=== PATIENT | female | born 1950 | race Caucasian/White ===

== ENCOUNTER → 2018-02-24 07:24 | Outpatient (CLI) | payer MEDICARE, BC, SELFPAY ==
--- NOTE | 2018-02-24 07:28 | BI_ITS ---
MAMMOGRAPHY - BILATERAL SCREENING REASON FOR EXAM: Female, 67 years old. Routine annual screening examination. PERTINENT HISTORY: Mother with breast cancer. TECHNIQUE: Digital bilateral breast jorge (3D mammographic acquisition) in the CC and MLO projections. 2-D mediolateral oblique (MLO) and craniocaudad (CC) views of both breasts were obtained. CAD: Full Field Digital Mammography with Computer Added Detection was performed. COMPARISON: Comparison is made with prior study dated February 13, 2017 and November 29, 2015. FINDINGS: Breast Composition: There are scattered areas of fibroglandular density. There is a 6.7 mm x 5 mm well-defined nodule in the inferior slightly medial aspect of the left breast. Correlation with ultrasound is recommended. A tissue clip marker is once again seen in the superior medial aspect of the right breast. This is unchanged. Stable benign-appearing bilateral axillary lymph nodes. No other significant abnormalities are identified. BI/SCREENING MAMM (CAD), BILAT IMPRESSION: 6.7 mm x 5 mm well-defined nodule in the inferior slightly medial aspect of the left breast as described. Correlation with ultrasound is recommended. ASSESSMENT CATEGORY: BIRADS Category 0: Incomplete. Need additional imaging evaluation. A letter regarding these results will be sent to the patient by the facility within 30 days. Approximately 10% of breast cancers are not detected by mammography. A normal mammogram should not delay biopsy of a clinically suspicious abnormality. [id number] Electronically Signed: Woo Rodriguez MD at 9:02 EDT Tel [phone], Service support ,
== END ==
PROVIDERS: Family Provider Internal Medicine; PCP Internal Medicine; Visit Provider Internal Medicine
DX: Z12.31 Encounter for screening mammogram for malignant neoplasm of breast (principal)
CPT/HCPCS: 77063; 77067

== ENCOUNTER → 2018-02-25 09:49 | Outpatient (CLI) | payer MEDICARE, BC, SELFPAY ==
--- NOTE | 2018-02-25 09:51 | US_ITS ---
STUDY: ULTRASOUND BREAST - LEFT REASON FOR EXAM: Female, 67 years old. Abnormal screening mammogram. TECHNIQUE: Axial and longitudinal images of the LEFT breast were performed with a high resolution ultrasound transducer. COMPARISON: Comparison is made with prior mammogram dated February 24, 2018. FINDINGS: LEFT Breast: The mammographic abnormality corresponds to a 5 mm x 5 mm x 4 mm cyst at the 7:00 position in the breast at 4 cm from the nipple. US/Breast Limited Unilateral IMPRESSION: The mammographic abnormality corresponds to a 5 mm x 5 mm x 4 mm cyst at the 7:00 position breast at 4 cm from nipple. ASSESSMENT CATEGORY: BIRADS Category 2: Benign. A letter regarding these results will be sent to the patient by the facility within 30 days. Electronically Signed: Woo Rodriguez MD at 12:42 EDT Tel [phone], Service support ,
== END ==
PROVIDERS: Family Provider Internal Medicine; PCP Internal Medicine; Visit Provider Internal Medicine
DX: R92.8 Other abnormal and inconclusive findings on diagnostic imaging of breast (principal)
CPT/HCPCS: 76642

== ENCOUNTER → 2019-01-20 | Outpatient (CLI) | payer SELFPAY ==
--- NOTE | 2019-01-20 12:57 | CT_ITS ---
STUDY: CARDIAC CALCIUM SCORING - CT CHEST REASON FOR EXAM: Female, 68 years old. Coronary calcium screening, over read. RADIATION DOSAGE (If Supplied By Facility): DLP = ( 170.6 ) mGycm TECHNIQUE: Axial non-enhanced images were acquired through the heart for the sole purpose of measuring coronary artery calcium. Individualized dose optimization techniques were used for this CT. COMPARISON: None. FINDINGS: Body wall soft tissues: No acute process. Upper abdomen: No acute process. Osseous structures: Mild spondylosis, osteopenia. Mediastinum: No acute process. Lungs: There is mild generalized pulmonary hyperlucency which may reflect the presence of COPD. Follow-up are otherwise clear. Evaluated airways are normal. Aorta: Nondilated. Mild calcification of the aortic valve annulus. Pulmonary arteries: Nondilated. IVC and SVC: Normal. Pulmonary veins: Normal. Heart: No cardiomegaly or pericardial effusion. Coronary arteries: The right and left coronary arteries each emerge from the appropriate coronary sinus, right coronary dominance to the PDA, ramus intermedius trifurcation of the left main, normal variant. Coronary calcifications are notable at the origin of the LAD and ramus intravenous branch, minimal thereafter in the proximal to mid LAD, 3 foci of coronary calcium in the proximal RCA. CT/CCTA Calcium Scoring IMPRESSION: The coronary calcium score is reported under separate cover with cardiology. Please see that report. No other significant thoracic process is evident. Electronically Signed: Theodore Armenta MD at 14:47 EDT Tel , Service support ,
--- NOTE | 2019-01-20 12:57 | CT_ITS ---
STUDY: CARDIAC CALCIUM SCORING - CT CHEST REASON FOR EXAM: Female, 68 years old. Coronary calcium screening, over read. RADIATION DOSAGE (If Supplied By Facility): DLP = ( 170.6 ) mGycm TECHNIQUE: Axial non-enhanced images were acquired through the heart for the sole purpose of measuring coronary artery calcium. Individualized dose optimization techniques were used for this CT. COMPARISON: None. FINDINGS: Body wall soft tissues: No acute process. Upper abdomen: No acute process. Osseous structures: Mild spondylosis, osteopenia. Mediastinum: No acute process. Lungs: There is mild generalized pulmonary hyperlucency which may reflect the presence of COPD. Follow-up are otherwise clear. Evaluated airways are normal. Aorta: Nondilated. Mild calcification of the aortic valve annulus. Pulmonary arteries: Nondilated. IVC and SVC: Normal. Pulmonary veins: Normal. Heart: No cardiomegaly or pericardial effusion. Coronary arteries: The right and left coronary arteries each emerge from the appropriate coronary sinus, right coronary dominance to the PDA, ramus intermedius trifurcation of the left main, normal variant. Coronary calcifications are notable at the origin of the LAD and ramus intravenous branch, minimal thereafter in the proximal to mid LAD, 3 foci of coronary calcium in the proximal RCA. CT/Limited Chest CT w/CCTA IMPRESSION: The coronary calcium score is reported under separate cover with cardiology. Please see that report. No other significant thoracic process is evident. Electronically Signed: Theodore Armenta MD at 14:47 EDT Tel , Service support ,
[2019-01-20 12:59] VITALS: BP 141/38; PULSE 61; RESP 16; O2SAT 95; BMI 28.3
--- NOTE | 2019-01-20 16:49 | CA.SCORE ---
Calcium Scoring Date of Study:: 01/20/19 Coronary Calcium Scoring: High-resolution Computed Tomographic imaging of the chest was performed on [01/20/2019], with particular attention paid to the coronary arteries. Images from the examination were analyzed for the presence and extent of coronary artery calcification , using coronary calcium quantification software. The patient tolerated the procedure well and there were no complications. The results of the coronary calcification analysis are provided below. - Findings Left Main (LM): 0 Left Anterior Descending (LAD): 35 Left Circumflex (LCX): 0 Right Coronary Artery (RCA): 51 Total Agatston Score: 86 Percentile Rankin - Conclusion Calcium Scoring Interpretation: Calcium Score Interpretation 0 No identifiable atherosclerotic plaque. Very low cardiovascular disease risk. <5% chance of presence coronary artery disease A Negative Examination 1-10 Minimal Plaque burden. Significant coronary artery disease very unlikely. 11-100 Mild plaque burden. Likely mild or minimal coronary atherosclerosis. 101-400 Moderate plaque burden Moderate non-obstructive coronary artery disease highly likely. Over 400 Extensive plaque burden. High likelihood of at least one significant coronary stenosis (>50% diameter) Calcium Score: 11 - 100 Likely mild or minimal coronary stenosis - The above is suggestive of likely mild to minimal coronary atherosclerosis. Full evaluation of cardiac risk should include assessment of all conventional risk factors. The scores and percentile ranking reported hearing should be evaluated in this context.
== END | disposition home or self-care (01) ==
PROVIDERS: Family Provider Internal Medicine; PCP Internal Medicine; Referring Provider Internal Medicine; Visit Provider Internal Medicine
DX: Z82.49 Family history of ischemic heart disease and other diseases of the circulatory system (principal)
CPT/HCPCS: 75571; 76380

== ENCOUNTER → 2019-01-27 | Outpatient (CLI) | payer MEDICARE, BC, SELFPAY ==
[2019-01-20 12:59] VITALS: BMI 28.3
--- NOTE | 2019-01-27 12:21 | BD_ITS ---
STUDY: DUAL ENERGY X-RAY ABSORPTIOMETRY / DXA REASON FOR EXAM: Female, 68 years old. Early menopause. No loss of height. TECHNIQUE: Bone Mineral Density (BMD) measurements of lumbar spine and bilateral hips were obtained. COMPARISON: Comparison is made with prior study dated August 21, 2011. FINDINGS: Lumbar Spine (L1-L4): g/cm2 (1.098) / T-score (-0.6) / Z-score (1.1) Findings are suggestive of normal bone density with a low fracture risk. Increased kyphosis. Left Femur Total: g/cm2 (0.910) / T-score (-0.8) / Z-score (0.6) Left Femoral Neck: g/cm2 (0.780) / T-score (-1.9) / Z-score (-0.2) Right Femur Total: g/cm2 (0.879) / T-score (-1.0) / Z-score (0.4) Right Femoral Neck: g/cm2 (0.778) / T-score (-1.9) / Z-score (-0.3) The T-Scores on the most recent prior examination were: Lumbar Spine (L1-L4): There has been improvement of bone density since the previous examination. Left Femur Total: which represents an improvement of 0.9%. Right Femur Total: which represents an improvement of 2.9%. BD/Dexa Bone Density Study IMPRESSION: The patient is considered osteopenic as outlined below according to World Jose M Organization (WHO) criteria with a moderate fracture risk. There has been improvement of bone density since the previous examination. Reference Information: The T-score is the number of standard deviations above or below the standard which is normal for young adults at their peak bone mineral density. The World Health Organization (WHO) interprets the T-scores as follows: Above -1 Normal bone density Between -1 and -2.5 Osteopenia Equal to / or below -2.5 Osteoporosis As a practical clinical guideline, osteopenia may be graded as follows: Mild -1 through -1.5 Moderate -1.6 through -2.0 Severe -2.1 through -2.4 The Z-score is the number of standard deviations above or below age-matched controls. A Z-score of less than -1.5 would be considered abnormal. References: 1. NIH Osteoporosis and Related Bone Diseases http://www.osteo.org 2. International Society for Clinical Densitometry http://www.iscd.org 3. National Osteoporosis Foundation http://www.nof.org Electronically Signed: Woo Rodriguez, at 10:50 EDT , Service support ,
== END | disposition home or self-care (01) ==
LOC: OPBD 12:04
PROVIDERS: Family Provider Internal Medicine; PCP Internal Medicine; Referring Provider Internal Medicine; Visit Provider Internal Medicine
DX: Z78.0 Asymptomatic menopausal state (principal)
CPT/HCPCS: 77080

== ENCOUNTER → 2019-03-02 | Outpatient (CLI) | payer MEDICARE, BC, SELFPAY ==
[2019-01-20 12:59] VITALS: BMI 28.3
--- NOTE | 2019-03-02 08:15 | BI_ITS ---
MAMMOGRAPHY - BILATERAL SCREENING REASON FOR EXAM: Female, 68 years old. Routine annual screening examination. PERTINENT HISTORY: Mother with breast cancer. Remote right stereotactic breast biopsy and left ultrasound breast biopsy. TECHNIQUE: Digital bilateral breast lalo (3D mammographic acquisition) in the CC and MLO projections. 2-D mediolateral oblique (MLO) and craniocaudad (CC) views of both breasts were obtained. CAD: Full Field Digital Mammography with Computer Added Detection was performed. COMPARISON: Comparison is made with prior study dated February 24, 2018 and February 13, 2017. FINDINGS: Breast Composition: There are scattered areas of fibroglandular density. There are no dominant masses or suspicious calcifications. A tissue clip marker is seen in the upper medial aspect of the right breast. Stable 5.3 mm nodule in the left breast. No other significant abnormalities are identified. There has been no significant change since the prior study. BI/SCREEN MAMM (CAD) W/LALO BILAT IMPRESSION: Stable bilateral screening mammogram. Yearly follow-up mammogram recommended. (A) ASSESSMENT CATEGORY: BIRADS Category 2: Benign. A letter regarding these results will be sent to the patient by the facility within 30 days. Approximately 10% of breast cancers are not detected by mammography. A normal mammogram should not delay biopsy of a clinically suspicious abnormality. [id number] Electronically Signed: Woo Rodriguez, at 15:32 EDT , Service support ,
== END | disposition home or self-care (01) ==
LOC: OPBI 08:13
PROVIDERS: Family Provider Internal Medicine; PCP Internal Medicine; Referring Provider Internal Medicine; Visit Provider Internal Medicine
DX: Z12.31 Encounter for screening mammogram for malignant neoplasm of breast (principal)
CPT/HCPCS: 77063; 77067

== ENCOUNTER → 2020-06-07 07:49 | Outpatient (CLI) | payer MEDICARE, BC, SELFPAY ==
[2019-01-20 12:59] VITALS: BMI 28.3
--- NOTE | 2020-06-07 07:52 | BI_ITS ---
MAMMOGRAPHY - BILATERAL SCREENING REASON FOR EXAM: Female, 69 years old. Routine annual screening examination. PERTINENT HISTORY: Mother with breast cancer. Prior right stereotactic breast biopsy and left ultrasound-guided breast biopsy. TECHNIQUE: Digital bilateral breast lalo (3D mammographic acquisition) in the CC and MLO projections. 2-D mediolateral oblique (MLO) and craniocaudad (CC) views of both breasts were obtained. CAD: Full Field Digital Mammography with Computer Added Detection was performed. COMPARISON: Comparison is made with prior examination dated 03/02/2019 and 02/24/2018. FINDINGS: Breast Composition: There are scattered areas of fibroglandular density. There are no dominant masses or suspicious calcifications. A tissue clip marker is seen in the slightly upper medial anterior aspect of the right breast. Stable bilateral benign appearing axillary lymph node. No other significant abnormalities are identified. There has been no significant change since the prior study. BI/SCREEN MAMM (CAD) W/LALO BILAT IMPRESSION: Stable bilateral screening mammogram. Yearly follow-up mammogram recommended. (A) ASSESSMENT CATEGORY: BIRADS Category 2: Benign. A letter regarding these results will be sent to the patient by the facility within 30 days. Approximately 10% of breast cancers are not detected by mammography. A normal mammogram should not delay biopsy of a clinically suspicious abnormality. [id number] Electronically Signed: Woo Rodriguez, at 10:24 EDT , Service support ,
== END ==
PROVIDERS: PCP Internal Medicine; Referring Provider Internal Medicine; Visit Provider Internal Medicine
DX: Z12.31 Encounter for screening mammogram for malignant neoplasm of breast (principal)
CPT/HCPCS: 77063; 77067

== ENCOUNTER → 2021-08-10 12:45 | Outpatient (CLI) | payer MEDICARE, BC, SELFPAY ==
[2019-01-20 12:59] VITALS: BMI 28.3
--- NOTE | 2021-08-10 12:49 | BI_ITS ---
MAMMOGRAPHY - BILATERAL SCREENING REASON FOR EXAM: Female, 71 years old. Routine annual screening examination. PERTINENT HISTORY: Mother with breast cancer. Prior right stereotactic breast biopsy. TECHNIQUE: Digital bilateral breast lalo (3D mammographic acquisition) in the CC and MLO projections. 2-D mediolateral oblique (MLO) and craniocaudad (CC) views of both breasts were obtained. CAD: Full Field Digital Mammography with Computer Added Detection was performed. COMPARISON: Comparison is made with prior study 06/07/2020 and 03/02/2019. FINDINGS: Breast Composition: There are scattered areas of fibroglandular density. There are no dominant masses or suspicious calcifications. A tissue clip marker is once again seen in the slightly upper medial aspect of the right breast. No other significant abnormalities are identified. There has been no significant change since the prior study. BI/SCRN MAMM (CAD)W/LALO BILAT IMPRESSION: Stable bilateral screening mammogram. Yearly follow-up mammogram recommended. (A) ASSESSMENT CATEGORY: BIRADS Category 2: Benign. A letter regarding these results will be sent to the patient by the facility within 30 days. Approximately 10% of breast cancers are not detected by mammography. A normal mammogram should not delay biopsy of a clinically suspicious abnormality. [id number] Electronically Signed: Woo Rodriguez MD at 15:12 EST , Service support ,
--- NOTE | 2021-08-10 12:55 | BD_ITS ---
STUDY: DUAL ENERGY X-RAY ABSORPTIOMETRY / DXA REASON FOR EXAM: Female, 71 years old. Z780. The patient is postmenopausal. TECHNIQUE: Bone Mineral Density (BMD) measurements of lumbar spine and bilateral hips were obtained. COMPARISON: Comparison is made with prior examination dated 01/27/2019. FINDINGS: Lumbar Spine (L1-L4): g/cm2 (0.986) / T-score (-0.6) / Z-score (1.6) Findings are suggestive of normal bone density with a low fracture risk. Left Femur Total: g/cm2 (0.876) / T-score (-0.5) / Z-score (1.0) Left Femoral Neck: g/cm2 (0.623) / T-score (-2.0) / Z-score (-0.2) Right Femur Total: g/cm2 (0.823) / T-score (-1.0) / Z-score (0.6) Right Femoral Neck: g/cm2 (0.602) / T-score (-2.2) / Z-score (-0.4) The T-Scores on the most recent prior examination were: Lumbar Spine (L1-L4): There has been worsening of bone density since the previous examination. Left Femur Total: which represents an improvement of 3.4%. Right Femur Total: which represents an improvement of 0.8%. BD/Dexa Bone Density Study IMPRESSION: The patient is considered osteopenic as outlined below according to World Jose M Organization (WHO) criteria with a high fracture risk. There has been improvement of bone density since the previous examination. Reference Information: The T-score is the number of standard deviations above or below the standard which is normal for young adults at their peak bone mineral density. The World Health Organization (WHO) interprets the T-scores as follows: Above -1 Normal bone density Between -1 and -2.5 Osteopenia Equal to / or below -2.5 Osteoporosis As a practical clinical guideline, osteopenia may be graded as follows: Mild -1 through -1.5 Moderate -1.6 through -2.0 Severe -2.1 through -2.4 The Z-score is the number of standard deviations above or below age-matched controls. A Z-score of less than -1.5 would be considered abnormal. References: 1. NIH Osteoporosis and Related Bone Diseases www osteo.org 2. International Society for Clinical Densitometry www iscd.org 3. National Osteoporosis Foundation www nof.org Electronically Signed: Woo Rodriguez MD at 13:36 EST , Service support ,
== END ==
PROVIDERS: PCP Internal Medicine; Referring Provider Internal Medicine; Visit Provider Internal Medicine
DX: Z12.31 Encounter for screening mammogram for malignant neoplasm of breast (principal); Z78.0 Asymptomatic menopausal state
CPT/HCPCS: 77063; 77067; 77080

== ENCOUNTER → 2022-08-14 | Outpatient (CLI) | payer MEDICARE, BC, SELFPAY ==
--- NOTE | 2022-08-14 13:35 | BI_ITS ---
MAMMOGRAPHY - BILATERAL SCREENING REASON FOR EXAM: Female, 72 years old. Routine annual screening examination. PERTINENT HISTORY: Mother with breast cancer. Remote right stereotactic breast biopsy. TECHNIQUE: Digital bilateral breast jorge (3D mammographic acquisition) in the CC and MLO projections. 2-D mediolateral oblique (MLO) and craniocaudad (CC) views of both breasts were obtained. CAD: Full Field Digital Mammography with Computer Added Detection was performed. COMPARISON: Comparison is made with prior study dated 08/10/2021 and 06/07/2020. FINDINGS: Breast Composition: There are scattered areas of fibroglandular density. There are no dominant masses or suspicious calcifications. A tissue clip marker is once again seen in the slightly upper medial aspect of the No other significant abnormalities are identified. There has been no significant change since the prior study. BI/SCREENING MAMM (CAD), BILAT IMPRESSION: Stable bilateral screening mammogram. Yearly follow-up mammogram recommended. (A) ASSESSMENT CATEGORY: BIRADS Category 2: Benign. A letter regarding these results will be sent to the patient by the facility within 30 days. Approximately 10% of breast cancers are not detected by mammography. A normal mammogram should not delay biopsy of a clinically suspicious abnormality. [id number] Electronically Signed: Woo Rodriguez MD at 14:35 EST ,
== END | disposition home or self-care (01) ==
LOC: OPBI 13:33
PROVIDERS: PCP Internal Medicine; Referring Provider Internal Medicine; Visit Provider Internal Medicine
DX: Z12.31 Encounter for screening mammogram for malignant neoplasm of breast (principal); Z80.3 Family history of malignant neoplasm of breast
CPT/HCPCS: 77067

== ENCOUNTER 2022-10-16 07:44 | Outpatient (CLI) | payer MEDICARE, BC, SELFPAY ==
--- NOTE | 2022-10-16 07:48 | US_ITS ---
STUDY: ABDOMINAL ULTRASOUND - RIGHT UPPER QUADRANT REASON FOR VISIT: Female, 72 years old FATTY LIVER TECHNIQUE: Ultrasound evaluation of the right upper quadrant was performed with real-time and static cheatham-scale imaging. TECHNICAL QUALITY: Adequate. COMPARISON: None. FINDINGS: Liver: The liver measures 14.9 cm. There is increased echogenicity consistent with fatty infiltration. The bile ducts are within normal limits. There is hepatic color flow. The direction of portal flow is hepatopetal. There is no demonstrated mass lesion. Gallbladder: Normal distended gallbladder. The gallbladder wall measures 1.0 mm. There is a negative sonographic Yates''s sign. There is no pericholecystic fluid. There are no gallstones. Common Bile Duct (C.B.D.): The common bile duct measures 7.2 mm. Pancreas: Normal size of the head, body and tail of the pancreas. There is normal echogenicity of the pancreas. There is no demonstrated pancreatic mass or cyst. Right Kidney: Normal size of the right kidney. The right kidney measures 10 cm x 5.4 cm x 4.9 cm. Normal renal cortex. The right cortex measures 1.4 cm. There is no demonstrated renal mass or cyst. There is no right hydronephrosis. US/Abdomen Limited IMPRESSION: Diffuse fatty infiltration of the liver. Electronically Signed: Woo Rodriguez MD at 14:21 EST ,
--- NOTE | 2022-10-16 07:54 | US_ITS ---
STUDY: ABDOMINAL ULTRASOUND - ELASTOGRAPHY REASON FOR VISIT: Female, 72 years old. Fatty infiltration of the liver. TECHNIQUE: Liver stiffness measurements were obtained on a [facility] RS 85 ultrasound machine using a CA 1-7 probe following the SRU guidelines. 3 measurements were obtained using a 2-D-SWE method. The IQR/M was 12% suggesting a quality data set. TECHNICAL QUALITY: Adequate. COMPARISON: Comparison is made with prior study done earlier in the day. FINDINGS: Liver: Fatty infiltration of the liver. Median liver stiffness measured 7.3 kPa. US/Elastography Parenchyma/Organ IMPRESSION: Liver stiffness measures 7.3 kPa compatible with F2-F3 (Mild to moderate liver fibrosis) Metavir score. Electronically Signed: Woo Rodriguez MD at 14:23 EST ,
== END 2022-10-16 23:59 | disposition home or self-care (01) ==
LOC: US 07:44
PROVIDERS: PCP Internal Medicine; Visit Provider Internal Medicine
DX: K76.0 Fatty (change of) liver, not elsewhere classified (principal)
CPT/HCPCS: 76705; 76981

== ENCOUNTER → 2023-08-22 | Outpatient (CLI) | payer MEDICARE, BC, SELFPAY ==
--- NOTE | 2023-08-22 15:56 | BI_ITS ---
MAMMOGRAPHY - BILATERAL SCREENING 3-D TOMOSYNTHESIS REASON FOR EXAM: Female, 73 years old. Routine annual screening mammogram. PERTINENT HISTORY: Mother with breast cancer and remote right stereotactic breast biopsy. TECHNIQUE: 2-D mammograms and 3-D Tomosynthesis of the breast (s) were performed. CAD was performed. COMPARISON: August 14, 2022, August 10, 2021 FINDINGS: The breast composition is almost entirely fat. Stable lymph nodes, benign calcifications and tissue clip marker in right breast. No dominant masses, suspicious microcalcifications, asymmetries, skin thickening or nipple retraction. BI/SCRN MAMM (CAD)W/LALO BILAT IMPRESSION: No interval change and no mammographic signs of malignancy. Routine yearly mammogram recommended. ASSESSMENT CATEGORY: BIRADS Category 2: Benign. A letter regarding these results will be sent to the patient by the facility within 30 days. FOLLOW UP RECOMMENDATION: Yearly follow up mammogram recommended. (A) Approximately 10% of breast cancers are not detected by mammography. A normal mammogram should not delay biopsy of a clinically suspicious abnormality. Electronically Signed: Luigi Flores MD at 12:07 EST ,
--- NOTE | 2023-08-22 15:58 | BD_ITS ---
STUDY: DUAL ENERGY X-RAY ABSORPTIOMETRY / DXA REASON FOR EXAM: Female, 73 years old. 627.8Menopausal postmenopausal BONE DENSITY REASON FOR EXAM TECHNIQUE: Bone Mineral Density (BMD) measurements of lumbar spine and bilateral hips were obtained. COMPARISON: Comparison is made with prior examination dated August 10, 2021. FINDINGS: Lumbar Spine (L1-L4): g/cm2 (1.006) / T-score (-0.4) / Z-score (1.9) Findings are suggestive of normal bone density with a low fracture risk. Left Femur Total: g/cm2 (0.867) / T-score (-0.6) / Z-score (1.1) Left Femoral Neck: g/cm2 (0.625) / T-score (-2.0) / Z-score (0.0) Right Femur Total: g/cm2 (0.802) / T-score (-1.1) / Z-score (0.5) Right Femoral Neck: g/cm2 (0.604) / T-score (-2.2) / Z-score (-0.2) The T-Scores on the most recent prior examination were: Lumbar Spine (L1-L4): There has been improvement of bone density since the previous examination. Left Femur Total: which represents a worsening of 1%. Right Femur Total: which represents a worsening of 2.5%. BD/Dexa Bone Density Study IMPRESSION: The patient is considered osteopenic as outlined below according to World Jose M Organization (WHO) criteria with a high fracture risk. There has been worsening of bone density since the previous examination. Reference Information: The T-score is the number of standard deviations above or below the standard which is normal for young adults at their peak bone mineral density. The World Health Organization (WHO) interprets the T-scores as follows: Above -1 Normal bone density Between -1 and -2.5 Osteopenia Equal to / or below -2.5 Osteoporosis As a practical clinical guideline, osteopenia may be graded as follows: Mild -1 through -1.5 Moderate -1.6 through -2.0 Severe -2.1 through -2.4 The Z-score is the number of standard deviations above or below age-matched controls. A Z-score of less than -1.5 would be considered abnormal. References: 1. NIH Osteoporosis and Related Bone Diseases www osteo.org 2. International Society for Clinical Densitometry www iscd.org 3. National Osteoporosis Foundation www nof.org Electronically Signed: Woo Rodriguez MD at 15:40 EST ,
== END | disposition home or self-care (01) ==
LOC: OPBD 15:54
PROVIDERS: PCP Internal Medicine; Referring Provider Internal Medicine; Visit Provider Internal Medicine
DX: Z12.31 Encounter for screening mammogram for malignant neoplasm of breast (principal); Z78.0 Asymptomatic menopausal state; Z80.3 Family history of malignant neoplasm of breast
CPT/HCPCS: 77063; 77067; 77080

== ENCOUNTER → 2023-10-05 | Outpatient (CLI) | payer MEDICARE, BC, SELFPAY ==
[2023-10-05 07:50] LABS: Bacteria 0 SEEN /hpf (None Seen); Mucous, Urine 0 SEEN /hpf (<or=2+); Red Blood Cells-Urine 0 SEEN /hpf (0-5); Squamous Epithelial Cells - UA 0 SEEN /hpf (5-10)
[2023-10-05 08:31] LABS: Absolute Neutrophil Count 3.4 X10^3/uL (2.0-7.7); Basophil# 0.07 X10^3/uL; Basophil% 1.1 % (0-1); Eosinophil# 0.19 X10^3/uL; Eosinophils% 3.1 % (0-5); Hematocrit 41.5 % (37-47); Hemoglobin 13.5 g/dL (12.0-15.0); Lymphocyte % 32.3 % (19-41); Mean Corp Hgb Conc 32.5 g/dL (32-36); Mean Corpuscular Hgb 29.2 pg (27.0-32.0); Mean Corpuscular Volume 89.8 fL (81-99); Monocyte# 0.47 X10^3/uL; Monocyte% 7.6 % (0-10); NRBC Flagged by Analyzer 0 % (0-5); Neutrophil # 3.44 X10^3/uL (2.7-7.7); Neutrophil % 55.6 % (47-70); Platelet Count 206 K/mm3 (150-450); RBC Distribution Width SD 42.5 fl (35.1-43.9); Red Blood Count 4.62 M/mm3 (4.2-5.4); White Blood Count 6.2 K/mm3 (4.4-11.0)
[2023-10-05 09:10] LABS: ALB/GLOB Ratio 1.1 RATIO (0.9-2.4); AST(SGOT) 23 U/L (15-37); Alanine Aminotransfer ALT/SGPT 33 U/L (13-56); Albumin, Serum 3.6 g/dL (3.2-5.0); Alkaline Phosphatase 103 U/L (45-117); Anion Gap 5 (5-15); BUN 17 mg/dL (7-18); BUN/Creat Ratio 18.3 RATIO (10-20); Calcium,Total 9.5 mg/dL (8.5-10.1); Chloride 106 mmol/L (98-107); Cholesterol 188 mg/dL (200); Creatinine, Serum 0.93 mg/dL (0.55-1.02); EST Glomerular Filtration Rate 63 mL/min (>60); Est Glom Filt Rate - Afr Amer 76 mL/min (>60); Globulin 3.4 g/dL (2.2-4.2); Glucose 190 mg/dL (74-106); High Density Lipoprotein 47 mg/dL; Potassium 3.8 mmol/L (3.5-5.1); Sodium Level 140 mmol/L (136-145); Thyroid Stim Hormone (TSH) 2.34 uIU/mL (0.358-3.74); Triglycerides 134 mg/dL; Very Low Density Lipoprotein 27 mg/dL (5-40)
[2023-10-05 10:06] LABS: Color, Urine Yellow (Yellow); Urine Clarity Clear (Clear)
[2023-10-05 10:07] LABS: Glucose, Dipstick Normal (Normal); Ketone-Dipstick Negative (Negative); Leukocyte Esterase-Dipstick 25 /ul (Negative); Nitrite-Dipstick Negative (Negative); Occult Blood-Urine Negative /ul (Negative); Protein-Dipstick Negative (Negative); Urine Bilirubin Dipstick Negative (Negative); Urine Urobilinogen Normal (Normal); White Blood Cells 0-5 SEEN /hpf (0-5)
[2023-10-05 11:20] LABS: Microalbumin,Random Urine 7.1 mg/L (NO RANGE EST.); Microalbumin:Creatinine Ratio 5.6 mg/g CRE (<30 mg/g CRE)
[2023-10-07 08:41] LABS: Vitamin D,25 Hydroxy 73.1 ng/mL
== END | disposition home or self-care (01) ==
LOC: LAB 07:43
PROVIDERS: PCP Internal Medicine; Referring Provider Internal Medicine; Visit Provider Internal Medicine
DX: E78.5 Hyperlipidemia, unspecified (principal); E11.65 Type 2 diabetes mellitus with hyperglycemia; E03.9 Hypothyroidism, unspecified; E55.9 Vitamin D deficiency, unspecified
CPT/HCPCS: 36415; 80053; 80061; 81001; 82043; 82306; 82570; 84443; 85025

== ENCOUNTER 2024-05-19 09:30 | Outpatient (RCR) | payer MEDICARE, BC, SELFPAY ==
--- NOTE | 2024-04-28 08:40 | HP.PTEVAL ---
Patient's Visit Information Visit Information Visit Information: TRISTON MARTIN is a 73 year old F referred to Physical Therapy by Dr. Camelia Rod DO with a diagnosis of L hip bursitis and tight piriformis. Date of Evaluation: 04/24/24 Physical Therapist: Tyrese Ealsey DPT Visit Plan Frequency: 2x /Week Duration: 4 Weeks Plan: Start with Piriformis stretching, IT band stretching. May use US initially for pain control to piriformis/IT band near greater trochanter. Once pain has started to reduce add in glute medius/max strengthening. Subjective Subjective: Pt. is here today for her initial evaluation with diagnosis of L hip bursitis and tight piriformis. Pt. reports having pain for a a few years, but has recently become worse. She started a new job and feels like this might have exacerbated this. Pt. reports taking Ibuprofen with some relief. Pt. is having difficulty with sleeping on her L side. Pt. was give some exercises but was unable to to try them yet. Pt. reports being involved in her advent, but not very active besides work. Pt. denies N/T in either LE. Pt. has reports symptoms have become worse more recently. She is hopeful to reduce symptoms in order to get back to all work and recreational activities without limitations. Pain L hip: Pain Intensity (Out of 10): 4 Pain Intensity Range: 2 and 7 Objective Objective: POSTURE: Pt. has slight flexed posture. Normal iliac crest heights. Normal wt. shift. PALPATION: pt. has tenderness at L greater trochanter and piriformis muscle belly. NEURO: Pt. has normal sensation in BLEs. Normal DTR of BLEs. Pt. is able to rise on heels and toes. ROM: L hip: flexion 120deg NE, abd 45deg NE, ER 50deg tightness, IR 30deg NE. + obers test hip. MMT: pt. has 5/5 distal LE strength, 4/5 B hip flexion. Marked abduction weakness 4-/5 on L 4+/5 on R. GAIT: Pt. has fairly normal gait pattern with mild increase in symptoms. Special Tests L Hip Scour: Negative L Hip ROMMEL - Intraarticular Pathology: Negative L Hip FADDIR - Labrum: Negative L Hip Cruzito - IT Band: Positive Balance/Special Test Scores Lower Extremity Functional Score: 21 Goals Goal 1:: LTG: Pt. to be I with HEP. Goal Time Frame: 4-6 Weeks Goal 2:: LTG: Pt. to be able to walk unlimited distances without increase in L hip pain. Goal Time Frame: 4-6 Weeks Goal 3:: LTG: Pt. to be able to sleep throughout the night without increase in symptoms. Goal Time Frame: 4-6 Weeks Goal 4:: LTG: pt. to have increased L glute medius and neelam strength symmetrical to R side. Goal 5:: LTG: pt. to have a negative Obers test. Goal Time Frame: 4-6 Weeks Rehabilitation Potential Physical Therapy Diagnosis: Pt. has marked tightness in her It band and piriformis pain. Pt. would benefit from PT to address the tightness and then progress to strengthening of her glute med and max. Rehabilitation Potential: Excellent Anticipated Interventions Patient/Client Instruction: Educate patient on: Condition, Plan of Care, Risk Factors and Benefits of Fitness Program For the Purpose of:: To foster healthy habits, To improve decision making, To facilitate caregiver knowledge, To improve self management, To prevent re-injury and To improve ability to perform tasks related to life management Therapeutic Exercise to Include: Strength training, Power training, Postural training, Flexibilty training, Passive ROM and Active ROM For the Purpose of:: To decrease pain, To decrease swelling/inflammation, To increase ROM, To improve nutrient delivery to tissue, To increase oxygenation perfusion, To improve muscle performance and motor function, To improve ability to perform ADL's, To improve health of tissue, To decrease soft tissue restriction and To increase flexibility/ROM Manual Therapy Techniques to Include: Mobilization, Passive ROM, Functional dry needling and Soft tissue mobilization For the Purpose of:: To decrease pain, To decrease swelling/inflammation, To increase ROM, To improve nutrient delivery to tissue, To increase oxygenation perfusion and To improve muscle performance and motor function Ultrasound (thermal/non thermal): Yes For the Purpose of:: To decrease pain and To decrease swelling/inflammation Text: Thank you for the opportunity to evaluate your patient. For Medicare and Medicare HMO plans, please review the plan of care and approve it. It will need to be FAXED BACK to us at [phone] for Medicare purposes. For Medicare only, by signing this I certify the plan of care. Please let me know if there are questions or concerns regarding this plan of care. Physician Signature: Date:
--- NOTE | 2024-05-19 10:02 | HP.PTDCSUM ---
Discharge Summary D/C summary: It has been my pleasure to treat TRISTON MARTIN referred by Dr. Camelia Rod DO, with the diagnosis of L hip bursitis and tight piriformis for a total of 7 visit(s). Discharge Date: 05/19/24 Please see the following information for a summary of their discharge status. Subjective Subjective: Pt. reports overall doing well. She not having much pain at all. She reports being HEP compliant. Pt. reports being pleased. Pt. reports being 85% better overall. Work is going well. Pain L hip: Pain Intensity (Out of 10): 0 Overall Improvement % Improvement: 85 Objective Objective/Function: Pt. is overall doing very well. No major issues noted. Pt pleased. She has met all goals at this point in time and will be DC from PT today. She is no longer having any symptoms with all work and daily activities. Pt. has good ROM of L hip without increase in issues. She is to continue with piriformis, IT band stretching at home. She is to continue with glute med/max strengthening. I gave her exercises to work on all of the above. Goals Goal 1:: LTG: Pt. to be I with HEP. Goal Progress: Goal Met Goal 2:: LTG: Pt. to be able to walk unlimited distances without increase in L hip pain. Goal Progress: Goal Met Goal 3:: LTG: Pt. to be able to sleep throughout the night without increase in symptoms. Goal Progress: Goal Met Goal 4:: LTG: pt. to have increased L glute medius and neelam strength symmetrical to R side. Goal Progress: Goal Met Goal 5:: LTG: pt. to have a negative Obers test. Goal Progress: Goal Met Plan Plan: PT. to be DC from PT at this point in time. D/C Information d/c sentence: If there are questions or concerns regarding this patient's physical therapy, please feel free to call me at [phone]. Thank you for the referral of this patient. Sincerely, Tyrese Linn Sipos, DPT Balance/Gait/Functional tests Balance/Special Test Scores Lower Extremity Functional Score: 80 Improvement % Improvement: 85
== END 2024-05-19 19:00 | disposition home or self-care (01) ==
LOC: PT 09:30
PROVIDERS: PCP Internal Medicine; Referring Provider Internal Medicine; Visit Provider Internal Medicine
DX: G57.02 Lesion of sciatic nerve, left lower limb (principal); M70.62 Trochanteric bursitis, left hip
CPT/HCPCS: 97110; 97161

== ENCOUNTER → 2024-09-30 | Outpatient (CLI) | payer MEDICARE, BC, SELFPAY ==
[2024-09-30 07:37] LABS: Mucous, Urine 0 SEEN /hpf (<or=2+); Red Blood Cells-Urine 0 SEEN /hpf (0-5)
[2024-09-30 08:53] LABS: Absolute Lymphocyte Count 1.78 X10^3/uL (0.83-4.51); Absolute Neutrophil Count 3.4 X10^3/uL (2.0-7.7); Basophil# 0.04 X10^3/uL; Basophil% 0.7 % (0-1); Eosinophil# 0.19 X10^3/uL; Eosinophils% 3.3 % (0-5); Hematocrit 39.2 % (37-47); Hemoglobin 12.5 g/dL (12.0-15.0); Lymphocyte # 1.78 X10^3/ul (0.83-4.51); Lymphocyte % 30.8 % (19-41); Mean Corp Hgb Conc 31.9 g/dL (32-36); Mean Corpuscular Hgb 28.2 pg (27.0-32.0); Mean Corpuscular Volume 88.5 fL (81-99); Mean Platelet Vol. 9.2 fl (6.2-12.0); Monocyte% 6.9 % (0-10); NRBC Flagged by Analyzer 0 % (0-5); Neutrophil # 3.35 X10^3/uL (2.7-7.7); Neutrophil % 58.1 % (47-70); Platelet Count 200 K/mm3 (150-450); RBC Distribution Width CV 13.4 % (11.6-14.6); RBC Distribution Width SD 43.9 fl (35.1-43.9); Red Blood Count 4.43 M/mm3 (4.2-5.4); White Blood Count 5.8 K/mm3 (4.4-11.0)
[2024-09-30 08:54] LABS: Color, Urine Yellow (Yellow); Glucose, Dipstick Normal (Normal); Ketone-Dipstick Negative (Negative); Leukocyte Esterase-Dipstick 500 /ul (Negative); Nitrite-Dipstick Negative (Negative); Occult Blood-Urine Negative /ul (Negative); Protein-Dipstick Negative (Negative); Specific Gravity, Urine 1.025 (1.002-1.030); Urine Bilirubin Dipstick Negative (Negative); Urine Clarity Sl. Cloudy (Clear); Urine Urobilinogen Normal (Normal)
[2024-09-30 09:05] LABS: Bacteria 1+ /hpf (None Seen); Squamous Epithelial Cells - UA 0-5 SEEN /hpf (5-10); White Blood Cells 5-10 SEEN /hpf (0-5)
[2024-09-30 09:20] LABS: Vitamin D,25 Hydroxy 58.6 ng/mL
[2024-09-30 09:30] LABS: AST(SGOT) 20 U/L (15-37); Alanine Aminotransfer ALT/SGPT 30 U/L (13-56); Albumin, Serum 3.5 g/dL (3.2-5.0); Alkaline Phosphatase 90 U/L (45-117); Anion Gap 8 (5-15); BUN 25 mg/dL (7-18); BUN/Creat Ratio 26.4 RATIO (10-20); Calcium,Total 9.5 mg/dL (8.5-10.1); Chloride 107 mmol/L (98-107); Cholesterol 165 mg/dL (200); Creatinine, Serum 0.95 mg/dL (0.55-1.02); EST Glomerular Filtration Rate 61 mL/min (>60); Est Glom Filt Rate - Afr Amer 74 mL/min (>60); Globulin 3.5 g/dL (2.2-4.2); Glucose 151 mg/dL (74-106); High Density Lipoprotein 46 mg/dL; Potassium 3.4 mmol/L (3.5-5.1); Sodium Level 141 mmol/L (136-145); Triglycerides 128 mg/dL; Very Low Density Lipoprotein 26 mg/dL (5-40)
[2024-09-30 10:58] LABS: Microalbumin,Random Urine 19.8 mg/L (NO RANGE EST.); Microalbumin:Creatinine Ratio 10.5 mg/g CRE (<30 mg/g CRE)
== END | disposition home or self-care (01) ==
PROVIDERS: PCP Internal Medicine; Referring Provider Internal Medicine; Visit Provider Internal Medicine
DX: E78.5 Hyperlipidemia, unspecified (principal); E11.9 Type 2 diabetes mellitus without complications; E03.9 Hypothyroidism, unspecified; E55.9 Vitamin D deficiency, unspecified
CPT/HCPCS: 36415; 80053; 80061; 81001; 82043; 82306; 82570; 84443; 85025

== ENCOUNTER → 2024-10-16 | Outpatient (CLI) | payer MEDICARE, BC, SELFPAY ==
--- NOTE | 2024-10-16 13:25 | BI_ITS ---
PROCEDURE: SCRN MAMM (CAD)W/LALO BILAT REASON FOR EXAM: F, Age 74 y/o, presents for annual screening mammogram. Family history of breast cancer in mother at 54 years old. TECHNIQUE: Bilateral screening digital breast tomosynthesis with 2D and 3D images. Computer aided detection. COMPARISON: 08/22/2023, 08/14/2022 FINDINGS: There are scattered areas of fibroglandular density. No suspicious masses, areas of developing architectural distortion, or suspicious calcifications. BI/SCRN MAMM (CAD)W/LALO BILAT IMPRESSION: There is no mammographic evidence of malignancy in either breast. BI-RADS 1: NEGATIVE. RECOMMEND ANNUAL MAMMOGRAPHIC SCREENING. Follow-up code: Routine Follow-up The patient will be notified of the results by letter. Reading Location: [facility]
== END | disposition home or self-care (01) ==
LOC: OPBI 13:24
PROVIDERS: PCP Internal Medicine; Referring Provider Internal Medicine; Visit Provider Internal Medicine
DX: Z12.31 Encounter for screening mammogram for malignant neoplasm of breast (principal)
CPT/HCPCS: 77063; 77067

== ENCOUNTER 2025-05-12 13:00 | Outpatient (RCR) | payer MEDICARE, BC, SELFPAY ==
--- NOTE | 2025-01-15 13:49 | HP.PTEVAL_ITS ---
Patient's Visit Information Visit Information Visit Information: TRISTON MARTIN is a 74 year old F referred to Physical Therapy by Dr. Camelia Rod DO with a diagnosis of L piriformis pain. Date of Evaluation: 01/15/25 Physical Therapist: Tyrese Easley DPT Visit Plan Frequency: 2x /Week Duration: 6 Weeks Plan: 1.0 MHz, US to L piriformis, posterior greater trochanter piriformis stretching and DFM Glute med and max strengthening Subjective Subjective: Pt. is here today for her L piriformis pain. Pt. reports having issues ~1 year ago which PT helped, but has not done much of her exercsies. Pt. reports her pain has returned. Pt. reports no N/T in either LE. Pt. reports increased pain with standing walking and with kicking her leg out to the side. Pt. is sleeping well, but has pain if she rolls on to her L side. Pt. reports pain in her gluteal region, but closer to posterior aspect of greater trochanter. Pt. is recently retired. Pt. is hopeful to reduce symptoms in order to get back to all recreational activities without limitations. Pain L gluteal region: Pain Intensity (Out of 10): 3 Pain Intensity Range: 2 and 6 Objective Objective: POSTURE: Pt. has fairly normal posture in stance. Pt. has slight flexed posture. Pt. has normal [place] in stance. PALPATION: Pt has marked tenderness at L piriformis muscle belly and at posterior aspect of greater trochanter. NEURO: Normal thoruhgout. ROM: flexion normal, ER 60deg increase NW, IR 30deg NE, abd normal. MMT: L hip abd 16# increase NW, R hip abd 24# NE, L hip ext 21#, R hip ext 34# GAIT: Pt. has slight antalgic pattern during L stance phase, slight L femoral add in stance, indicitive of L hip abd weakness. STAIRS: Pt. has marked increased pain and difficulty with L LE stance phase. IT band tightness as well. Balance/Special Test Scores Lower Extremity Functional Score: 40 Goals Goal 1:: LTG: pt. to be I with HEP. Goal Time Frame: 4-6 Weeks Goal 2:: STG: pt. to have full L hip ROM without increase in symptoms. Goal Time Frame: 2 Weeks Goal 3:: LTG: Pt. to have equal glute med and glute max strength between BLEs. Goal Time Frame: 2-4 Weeks Goal 4:: LTG: pt. to ambulate without increase in L hip pain. Goal Time Frame: 4-6 Weeks Rehabilitation Potential Physical Therapy Diagnosis: Pt. has signs and symptoms consistent with L piriformis pain. Pt. has marked hip abductor and ER weakness. Pt. has piriformis tightness as well. Pt. would benefit from PT to address the above limitations. Rehabilitation Potential: Excellent Anticipated Interventions Patient/Client Instruction: Educate patient on: Condition, Plan of Care, Risk Factors and Benefits of Fitness Program For the Purpose of:: To foster healthy habits, To improve decision making, To facilitate caregiver knowledge, To improve self management, To prevent re-injury and To improve ability to perform tasks related to life management Therapeutic Exercise to Include: Strength training, Power training, Coordi nation, Flexibilty training, Gait and locomotor training, Passive ROM and Active ROM For the Purpose of:: To decrease pain, To decrease swelling/inflammation, To improve nutrient delivery to tissue and To increase oxygenation perfusion Manual Therapy Techniques to Include: Mobilization and Passive ROM For the Purpose of:: To decrease pain, To decrease swelling/inflammation, To increase ROM and To improve nutrient delivery to tissue Ultrasound (thermal/non thermal): Yes For the Purpose of:: To decrease pain, To decrease swelling/inflammation, To increase ROM and To improve nutrient delivery to tissue Text: Thank you for the opportunity to evaluate your patient. For Medicare and Medicare HMO plans, please review the plan of care and approve it. It will need to be FAXED BACK to us at [phone] for Medicare purposes. For Medicare only, by signing this I certify the plan of care. Please let me know if there are questions or concerns regarding this plan of care. Physician Signature: Date:
--- NOTE | 2025-02-12 13:21 | HP.PTREVAL ---
Re-Evaluation Intro: Dr. Camelia Rod, DO, It has been my pleasure to treat TRISTON MARTIN over the last 10 visits for L piriformis pain. Please see the progress note below for an update on the physical therapy plan of care! Subjective Subjective: Pt. reports no pain currently. Pt. reports being 95% better overall. She is getting ready to go on vacation next week. Objective Objective/Function: MMT: L hip: abd 18.1 R hip: abd 30.2# GAIT: normal without issues. STAIRS: normal no pain. ROM: Pt. does still have some tightness with L hip ER, but has improved. Pt. has 60deg of L hip ER. Pt. is overall doing well. She is going on vacation for ~5 weeks. She is to come back and work on strengthening pending tolerance. SHe does have marked glute med weakness and would benefit from this to reduce risk of future piriformis issues. Plan Plan Plan: Pt. is to complete her HEP for 5 weeks while on vacation. Then contact PT to determine how her tolerance was and to progress gym exercises for hip strengthening at that point in time. Balance/Gait/Functional tests Balance/Special Test Scores Lower Extremity Functional Score: 75 Goals Goals Goal 1:: LTG: pt. to be I with HEP. Goal Time Frame: 4-6 Weeks Goal Progress: Progressing Goal 2:: STG: pt. to have full L hip ROM without increase in symptoms. Goal Time Frame: 2 Weeks Goal Progress: Goal Met Goal 3:: LTG: Pt. to have equal glute med and glute max strength between BLEs. Goal Time Frame: 2-4 Weeks Goal Progress: Progressing Goal 4:: LTG: pt. to ambulate without increase in L hip pain. Goal Time Frame: 4-6 Weeks Goal Progress: Progressing Anticipated Interventions Anticipated Interventions Patient/Client Instruction: Educate patient on: Condition, Plan of Care, Risk Factors and Benefits of Fitness Program For the Purpose of:: To foster healthy habits, To improve decision making, To facilitate caregiver knowledge, To improve self management, To prevent re-injury and To improve ability to perform tasks related to life management Therapeutic Exercise to Include: Strength training, Power training, Coordination, Flexibilty training, Gait and locomotor training, Passive ROM and Active ROM For the Purpose of:: To decrease pain, To decrease swelling/inflammation, To improve nutrient delivery to tissue and To increase oxygenation perfusion Manual Therapy Techniques to Include: Mobilization and Passive ROM For the Purpose of:: To decrease pain, To decrease swelling/inflammation, To increase ROM and To improve nutrient delivery to tissue Ultrasound (thermal/non thermal): Yes For the Purpose of:: To decrease pain, To decrease swelling/inflammation, To increase ROM and To improve nutrient delivery to tissue Re-Evaluation Ending Re-evaluation ending: Please do not hesitate to contact me at [phone] by phone or if you have questions or concerns regarding this new plan of care! Sincerely, ANSLEY DiamondT
--- NOTE | 2025-04-05 15:28 | HP.PTREVAL ---
Re-Evaluation Intro: Dr. Camelia Rod, DO, It has been my pleasure to treat TRISTON MARTIN over the last 11 visits for L piriformis pain. Please see the progress note below for an update on the physical therapy plan of care! Subjective Subjective: Pt. reports going on vacation and tolerating well. Pt. reports falling while hiking. She was very compliant on her exercises. She tolerated driving well. Pt. is back and would like to be stronger. Objective Objective/Function: MMT: L hip: abd 28.4, knee: ext 21.1#, flex 17.7# R hip abd 48.9#; knee: ext 24.4, flex 24.5 GAIT: Pt. ambulates without Ad. No major abnormalities STAIRS: pt. has normal pattern with use of 1 HR. pt. is overall doing well. No major issues noted. I would like her LE strength to be greater. Plan Plan Plan: 1) Pt. to be seen for progressive LE strengthening. Focus on hip abd, ER, quad, HS strengthening. By the end I would like her to be fully I with gym program. Balance/Gait/Functional tests Balance/Special Test Scores Lower Extremity Functional Score: 75 30 Second Chair Rise Test Seconds: 14 Goals Goals Goal 1:: LTG: pt. to be I with HEP. Goal Time Frame: 4-6 Weeks Goal Progress: Progressing Goal 2:: STG: pt. to have full L hip ROM without increase in symptoms. Goal Time Frame: 2 Weeks Goal Progress: Goal Met Goal 3:: LTG: Pt. to have equal glute med and glute max strength between BLEs. Goal Time Frame: 2-4 Weeks Goal Progress: Progressing Goal 4:: LTG: pt. to ambulate without increase in L hip pain. Goal Time Frame: 4-6 Weeks Goal Progress: Progressing Goal 5:: LTG: Pt. to be I with gym program for LE strengthening. Goal Time Frame: 2-4 Weeks Goal Progress: Progressing Anticipated Interventions Anticipated Interventions Patient/Client Instruction: Educate patient on: Condition, Plan of Care, Risk Factors and Benefits of Fitness Program For the Purpose of:: To foster healthy habits, To improve decision making, To facilitate caregiver knowledge, To improve self management, To prevent re-injury and To improve ability to perform tasks related to life management Therapeutic Exercise to Include: Strength training, Power training, Coordination, Flexibilty training, Gait and locomotor training, Passive ROM and Active ROM For the Purpose of:: To decrease pain, To decrease swelling/inflammation, To improve nutrient delivery to tissue and To increase oxygenation perfusion Manual Therapy Techniques to Include: Mobilization and Passive ROM For the Purpose of:: To decrease pain, To decrease swelling/inflammation, To increase ROM and To improve nutrient delivery to tissue Ultrasound (thermal/non thermal): Yes For the Purpose of:: To decrease pain, To decrease swelling/inflammation, To increase ROM and To improve nutrient delivery to tissue Re-Evaluation Ending Re-evaluation ending: Please do not hesitate to contact me at [phone] by phone or if you have questions or concerns regarding this new plan of care! Sincerely, ANSLEY DiamondT
--- NOTE | 2025-05-12 15:09 | HP.PTDCSUM_ITS ---
Discharge Summary D/C summary: It has been my pleasure to treat MANJU MARTIN referred by Dr. Camelia Rod DO, with the diagnosis of L piriformis pain for a total of 19 visit(s). Discharge Date: 05/12/25 Please see the following information for a summary of their discharge status. Subjective Subjective: Pt. reports having 1/10 pain currently, but not too bad. Pt. does get some increase pain increased standing. Pain is still at L greater trochanter region. No N/T noted. Pt. reports being 95% better overall. Pt. is going on vacation here soon. Pain L gluteal region: Pain Intensity (Out of 10): 0 Left hip /prirformis: Pain Intensity (Out of 10): 0 Overall Improvement % Improvement: 95 Objective Objective/Function: Manju has great ROM without issues. Pt. has symmetrical strength. She is independent with her gym exercise program as well. At this po int in time, I would suggest that she continue to work on her gym exercises I, 2-3x per week. Pt. consent. Pt. is overall doing well. Goals Goal 1:: LTG: pt. to be I with HEP. Goal Progress: Goal Met Goal 2:: STG: pt. to have full L hip ROM without increase in symptoms. Goal Progress: Goal Met Goal 3:: LTG: Pt. to have equal glute med and glute max strength between BLEs. Goal Progress: Goal Met Goal 4:: LTG: pt. to ambulate without increase in L hip pain. Goal Progress: Goal Met Goal 5:: LTG: Pt. to be I with gym program for LE strengthening. Goal Progress: Goal Met Plan Plan: Pt. to be DC from PT at this point in time. D/C Information d/c sentence: If there are questions or concerns regarding this patient's physical therapy, please feel free to call me at [phone]. Thank you for the referral of this patient. Sincerely, Tyrese Easley, DPT Balance/Gait/Functional tests Balance/Special Test Scores Lower Extremity Functional Score: 78 30 Second Chair Rise Test Seconds: 14 Improvement % Improvement: 95
== END 2025-05-12 19:00 | disposition home or self-care (01) ==
LOC: PT 13:00
PROVIDERS: PCP Internal Medicine; Referring Provider Internal Medicine; Visit Provider Internal Medicine
DX: G57.00 Lesion of sciatic nerve, unspecified lower limb (principal)
CPT/HCPCS: 97035; 97110; 97161; 97530

== ENCOUNTER → 2025-07-01 | Outpatient (CLI) | payer MEDICARE, BC, SELFPAY ==
--- NOTE | 2025-07-01 14:57 | STRESSREP_ITS ---
Stress Test Report Date: 07/01/2025 Procedure: Exercise tolerance test Indications: Chest pain Consent: Per the patient Procedure: The patient exercised on a Sony protocol for 6 minutes and 11 seconds achieving a peak heart rate of 136 bpm (93% predicted maximal heart rate) with a peak blood pressure 160/72 mmHg and a peak MET capacity of approximately 7.5 MET's. The baseline ECG demonstrated sinus rhythm. The peak exercise ECG showed borderline, mostly horizontal ST depressions in inferior leads suggestive of ischemia. No significant cardiac dysrhythmias noted. The functional capacity was considered very good for age. The patient had no complaints of chest discomfort during exercise or recovery. The examination was discontinued secondary to target heart rate being achieved. Impression: 1. Technically adequate (percent predicted maximal heart rate greater than 85%) exercise tolerance test 2. Peak exercise ECG borderline positive for ischemia in the inferior leads. No chest pain reported 3. No significant cardiac dysrhythmias noted This note was generated with [employer] software. It may contain incorrect words, spelling, and punctuation that were not noted in checking the note before signing.
== END | disposition home or self-care (01) ==
PROVIDERS: PCP Internal Medicine; Referring Provider Internal Medicine; Visit Provider Internal Medicine
DX: R07.89 Other chest pain (principal)
CPT/HCPCS: 93017

== ENCOUNTER → 2025-07-28 | Outpatient (CLI) | payer MEDICARE, BC, SELFPAY ==
[2025-07-28 12:29] LABS: Hematocrit 41.2 % (37-47); Hemoglobin 13.2 g/dL (12.0-15.0); Immature Granulocytes Count 0.020 X10^3/uL (0.0-0.0); Mean Corp Hgb Conc 32.0 g/dL (32-36); Mean Corpuscular Volume 89.4 fL (81-99); Mean Platelet Vol. 8.9 fl (6.2-12.0); NRBC Flagged by Analyzer 0 % (0-5); Platelet Count 228 K/mm3 (150-450); RBC Distribution Width CV 13.5 % (11.6-14.6); RBC Distribution Width SD 44.1 fl (35.1-43.9); Red Blood Count 4.61 M/mm3 (4.2-5.4); White Blood Count 8.3 K/mm3 (4.4-11.0)
[2025-07-28 13:03] LABS: Anion Gap 13 (5-15); BUN 15 mg/dL (4-19); BUN/Creat Ratio 18.2 RATIO (10-20); Calcium,Total 9.8 mg/dL (7.6-11.0); Carbon Dioxide 23.9 mmol/L (21.0-32.0); Chloride 105 mmol/L (98-108); Glucose 121 mg/dL (70-99); Potassium 4.2 mmol/L (3.3-5.1)
== END | disposition home or self-care (01) ==
LOC: LAB 12:05
PROVIDERS: PCP Internal Medicine; Referring Provider Internal Medicine Cardiovascular Disease; Visit Provider Internal Medicine Cardiovascular Disease
DX: I10 Essential (primary) hypertension (principal); R94.39 Abnormal result of other cardiovascular function study
CPT/HCPCS: 36415; 80048; 85025

== ENCOUNTER 2025-08-06 09:44 | Outpatient (CLI) | payer MEDICARE, BC, SELFPAY ==
--- NOTE | 2025-08-06 09:45 | ECHOD_ITS ---
Reason For Study Reason For Study: CAD/ASHD Procedure This was a 2D Doppler, Color Flow transthoracic echocardiogram. Exam performed in department. Left Ventricle Normal LV size. The left ventricular ejection fraction is 70 %. Stage 1 diastolic dysfunction. No regional wall motion abnormalities noted. Right Ventricle Normal RV size. Normal systolic function. Atria Normal left atrium. Normal right atrium. Mitral Valve Normal mitral valve. Tricuspid Valve Normal tricuspid valve. Mild (1+) tricuspid valve insufficiency. Pulmonary artery systolic pressure is 34 mmHg. Aortic Valve Trisinus/trileaflet aortic valve. Pulmonic Valve Normal pulmonic valve. Great Vessels Normal aortic root. The pulmonary artery is normal size. Inferior vena cava collapse with respiration. Pericardium/Pleural No pericardial effusion. MMode/2D Measurements & Calculations LVIDd: 4.2 cm IVSd: 0.77 cm Ao root diam: 2.6 cm LVIDs: 2.8 cm LVPWd: 0.76 cm RVDd: 2.9 cm FS: 34.7 % LAV(MOD-bp): 50.4 ml LVAd ap4: 23.4 cm2 LVAd ap2: 21.5 cm2 LAV(MOD-bp) Indexed: 30.2 ml/m2 LVLd ap4: 7.4 cm LVLd ap2: 7.2 cm LAV(MOD-sp2): 43.6 ml EDV(MOD-sp4): 63.2 ml EDV(MOD-sp2): 54.9 ml LAV(MOD-sp4): 50.0 ml EDV(sp4-el): 62.8 ml EDV(sp2-el): 54.7 ml LVAs ap4: 11.7 cm2 LVAs ap2: 10.3 cm2 LVLs ap4: 6.1 cm LVLs ap2: 5.7 cm ESV(MOD-sp4): 20.2 ml ESV(MOD-sp2): 16.0 ml ESV(sp4-el): 19.1 ml ESV(sp2-el): 15.7 ml EF(MOD-sp4): 68.1 % EF(MOD-sp2): 70.9 % EF(sp4-el): 69.6 % SV(MOD-sp4): 43.0 ml SV(MOD-sp2): 38.9 ml EDV(MOD-bp): 58.3 ml SI(MOD-sp4): 25.8 ml/m2 SI(MOD-sp2): 23.3 ml/m2 ESV(MOD-bp): 17.8 ml EF(MOD-bp): 69.5 % SV(sp4-el): 43.7 ml LA dimension(2D): 3.2 cm LA A4 area: 18.1 cm2 RA A4 area: 8.9 cm2 TAPSE: 1.8 cm Time Measurements MV dec time: 0.15 sec Doppler Measurements & Calculations MV E max paxton: 92.1 cm/sec Lat Peak E' Paxton: 9.0 cm/sec Med Peak E' Paxton: 9.4 cm/sec MV A max paxton: 113.7 cm/sec E/E' lat: 10.3 E/E' med: 9.8 MV E/A: 0.81 MV V2 max: 115.9 cm/sec MV P1/2t max paxton: 92.2 cm/sec Ao V2 max: 145.4 cm/sec MV max P.4 mmHg MV P1/2t: 25.3 msec Ao max P.5 mmHg MV V2 mean: 62.9 cm/sec Ao V2 mean: 104.6 cm/sec MV mean P.8 mmHg MV dec slope: 1068 cm/sec2 Ao mean P.8 mmHg MV V2 VTI: 30.9 cm MVA(P1/2t): 8.7 cm2 Ao V2 VTI: 34.4 cm AV (velocity ratio): 0.71 LV V1 max: 99.3 cm/sec PA V2 max: 81.4 cm/sec TR max paxton: 268.5 cm/sec LV V1 max P.9 mmHg TR max P.8 mmHg LV V1 mean P.3 mmHg LV V1 mean: 74.3 cm/sec LV V1 VTI: 24.3 cm ECHO/Echo Complete Interpretation Summary Normal LV size. The left ventricular ejection fraction is 70 %. Stage 1 diastolic dysfunction. Pulmonary artery systolic pressure is 34 mmHg. Structurally normal valves. Ordering Physician: Sanchez Christopher Referring Physician: Camelia Rod Performed By: Agustina Maurice, RDCS, RVT
== END 2025-08-06 23:59 | disposition home or self-care (01) ==
LOC: CVS 09:45
PROVIDERS: PCP Internal Medicine; Referring Provider Internal Medicine Cardiovascular Disease; Visit Provider Internal Medicine Cardiovascular Disease
DX: I10 Essential (primary) hypertension (principal); R94.39 Abnormal result of other cardiovascular function study; R07.89 Other chest pain
CPT/HCPCS: 93306